=== PATIENT | female | born 1985 | race Caucasian/White ===

== ENCOUNTER 2018-02-09 12:17 | Emergency (ER) | payer OTHER, MEDICAID ==
[2018-02-09 13:31] LABS: ADD MAN DIFF? NO
[2018-02-09 13:33] LABS: BASOPHIL # 0.1 10^3/ul (0.0-0.1); BASOPHILS % 0.6 % (0.0-2.0); EOSINOPHILS # 0.1 10^3/ul (0.0-0.5); EOSINOPHILS % 1.1 % (0.0-7.0); HEMATOCRIT 36.8 % (37.0-47.0); HEMOGLOBIN 11.5 g/dl (12.0-16.0); LYMPHOCYTES % 19.2 % (15.0-51.0); MEAN CORPUSCULAR HEMOGLOBIN 25.7 pg (29.0-33.0); MEAN CORPUSCULAR HGB CONC 31.3 g/dl (32.0-37.0); MEAN CORPUSCULAR VOLUME 82.3 fl (82.0-101.0); MEAN PLATELET VOLUME 11.2 fl (7.4-10.4); MONOCYTE # 0.7 10^3/ul (0.3-0.9); MONOCYTES % 6.6 % (0.0-11.0); NEUTROPHIL # 7.4 10^3/ul (1.6-7.5); NEUTROPHILS % 72.1 % (39.0-77.0); PLATELET COUNT 336 10^3/UL (140-415); RED BLOOD COUNT 4.47 10^6/ul (4.20-5.40); RED CELL DISTRIBUTION WIDTH 14.5 % (11.5-14.5)
[2018-02-09 13:33] LABS: WHITE BLOOD COUNT 10.2 10^3/ul (4.8-10.8)
[2018-02-09 13:39] LABS: ADD UMIC YES; UR ASCORBIC ACID 20 mg/dL (NEGATIVE); UR BACTERIA FEW /HPF (NONE SEEN); UR BILIRUBIN (Dip) NEGATIVE (NEGATIVE); UR BLOOD (Dip) 3+ mg/dL (NEGATIVE); UR CLARITY CLOUDY (CLEAR); UR COLOR YELLOW (YELLOW); UR GLUCOSE (Dip) NEGATIVE (NEGATIVE); UR KETONES (Dip) NEGATIVE (NEGATIVE); UR LEUKOCYTE ESTERASE (Dip) NEGATIVE Leu/ul (NEGATIVE); UR NITRITE (Dip) NEGATIVE (NEGATIVE); UR RBC 30 /HPF (0-5); UR SPECIFIC GRAVITY (Dip) 1.019 (1.003-1.030); UR SQUAMOUS EPITHELIAL CELL MODERATE /HPF (FEW); UR TOTAL PROTEIN (Dip) 1+ mg/dl (NEGATIVE); UR UROBILINOGEN (Dip) NEGATIVE (NEGATIVE); UR WBC 13 /HPF (0-5)
== END 2018-02-09 15:13 | disposition home or self-care (01) ==
LOC: FTE 12:17
DX: O20.9 Hemorrhage in early pregnancy, unspecified (principal); R10.2 Pelvic and perineal pain; Z3A.01 Less than 8 weeks gestation of pregnancy
CPT/HCPCS: 36415; 76801; 76817; 81001; 84702; 85025; 86900; 86901; 99284-25

== ENCOUNTER 2018-02-11 12:43 | Emergency (ER) | payer OTHER ==
[2018-02-11 13:45] LABS: ADD MAN DIFF? NO
[2018-02-11 13:49] LABS: WHITE BLOOD COUNT 12.7 10^3/ul (4.8-10.8)
[2018-02-11 13:49] LABS: BASOPHIL # 0.1 10^3/ul (0.0-0.1); BASOPHILS % 0.6 % (0.0-2.0); EOSINOPHILS # 0.2 10^3/ul (0.0-0.5); EOSINOPHILS % 1.3 % (0.0-7.0); HEMATOCRIT 35.1 % (37.0-47.0); LYMPHOCYTES # 2.3 10^3/ul (0.8-2.9); LYMPHOCYTES % 18.3 % (15.0-51.0); MEAN CORPUSCULAR HEMOGLOBIN 25.5 pg (29.0-33.0); MEAN CORPUSCULAR HGB CONC 31.3 g/dl (32.0-37.0); MEAN CORPUSCULAR VOLUME 81.4 fl (82.0-101.0); MEAN PLATELET VOLUME 11.2 fl (7.4-10.4); MONOCYTE # 0.8 10^3/ul (0.3-0.9); MONOCYTES % 6.4 % (0.0-11.0); NEUTROPHIL # 9.3 10^3/ul (1.6-7.5); NEUTROPHILS % 73.1 % (39.0-77.0); PLATELET COUNT 324 10^3/UL (140-415); RED BLOOD COUNT 4.31 10^6/ul (4.20-5.40); RED CELL DISTRIBUTION WIDTH 14.6 % (11.5-14.5)
[2018-02-11 14:18] LABS: ADD UMIC YES; UR ASCORBIC ACID 40 mg/dL (NEGATIVE); UR BACTERIA FEW /HPF (NONE SEEN); UR BILIRUBIN (Dip) NEGATIVE (NEGATIVE); UR BLOOD (Dip) 3+ mg/dL (NEGATIVE); UR CLARITY CLOUDY (CLEAR); UR COLOR YELLOW (YELLOW); UR GLUCOSE (Dip) NEGATIVE (NEGATIVE); UR KETONES (Dip) NEGATIVE (NEGATIVE); UR LEUKOCYTE ESTERASE (Dip) TRACE Leu/ul (NEGATIVE); UR MUCUS FEW /HPF (NONE SEEN); UR NITRITE (Dip) NEGATIVE (NEGATIVE); UR RBC 3 /HPF (0-5); UR SPECIFIC GRAVITY (Dip) 1.026 (1.003-1.030); UR SQUAMOUS EPITHELIAL CELL MODERATE /HPF (FEW); UR TOTAL PROTEIN (Dip) 1+ mg/dl (NEGATIVE); UR UROBILINOGEN (Dip) NEGATIVE (NEGATIVE); UR WBC 12 /HPF (0-5)
== END 2018-02-11 15:27 | disposition home or self-care (01) ==
LOC: FTE 15:27
DX: O20.0 Threatened abortion (principal); R10.2 Pelvic and perineal pain; Z3A.00 Weeks of gestation of pregnancy not specified
CPT/HCPCS: 36415; 76801; 76817; 81001; 84702; 85025; 99284-25

== ENCOUNTER 2018-02-15 15:54 | Emergency (ER) | payer OTHER ==
[2018-02-15] MEDS: NAPROXEN 500 MG TAB PO (19:25)
[2018-02-15 19:54] LABS: ADD MAN DIFF? NO
[2018-02-15 19:57] LABS: WHITE BLOOD COUNT 11.6 10^3/ul (4.8-10.8)
[2018-02-15 19:57] LABS: BASOPHIL # 0.1 10^3/ul (0.0-0.1); BASOPHILS % 0.5 % (0.0-2.0); EOSINOPHILS # 0.2 10^3/ul (0.0-0.5); EOSINOPHILS % 1.5 % (0.0-7.0); HEMATOCRIT 36.1 % (37.0-47.0); HEMOGLOBIN 11.1 g/dl (12.0-16.0); LYMPHOCYTES % 17.1 % (15.0-51.0); MEAN CORPUSCULAR HEMOGLOBIN 25.7 pg (29.0-33.0); MEAN CORPUSCULAR HGB CONC 30.7 g/dl (32.0-37.0); MEAN CORPUSCULAR VOLUME 83.6 fl (82.0-101.0); MEAN PLATELET VOLUME 11.5 fl (7.4-10.4); MONOCYTE # 0.8 10^3/ul (0.3-0.9); MONOCYTES % 6.6 % (0.0-11.0); NEUTROPHIL # 8.6 10^3/ul (1.6-7.5); PLATELET COUNT 310 10^3/UL (140-415); RED BLOOD COUNT 4.32 10^6/ul (4.20-5.40); RED CELL DISTRIBUTION WIDTH 14.3 % (11.5-14.5)
== END 2018-02-15 21:33 | disposition home or self-care (01) ==
LOC: FTE 15:54
DX: O03.9 Complete or unspecified spontaneous abortion without complication (principal); R40.2412 Glasgow coma scale score 13-15, at arrival to emergency department; R10.2 Pelvic and perineal pain
CPT/HCPCS: 76801; 85025; 99284-25

== ENCOUNTER 2018-03-08 07:39 | Inpatient (IN) | payer OTHER ==
[2018-03-08] MEDS: SOD CHLORIDE 0.9% 1,000 ML IV ×3 (08:04→12:18)
[2018-03-08] MEDS: ONDANSETRON 4 MG INJ IV ×4 (08:04→20:30)
[2018-03-08] MEDS: HYDROCODONE/APAP (5/325) TAB PO (08:05)
[2018-03-08 08:14] LABS: ADD MAN DIFF? NO
[2018-03-08 08:15] LABS: WHITE BLOOD COUNT 7.9 10^3/ul (4.8-10.8)
[2018-03-08 08:15] LABS: BASOPHILS % 0.6 % (0.0-2.0); EOSINOPHILS % 2.8 % (0.0-7.0); HEMATOCRIT 33.3 % (37.0-47.0); HEMOGLOBIN 10.5 g/dl (12.0-16.0); LYMPHOCYTES % 31.9 % (15.0-51.0); MEAN CORPUSCULAR HEMOGLOBIN 25.6 pg (29.0-33.0); MEAN CORPUSCULAR HGB CONC 31.5 g/dl (32.0-37.0); MEAN CORPUSCULAR VOLUME 81.2 fl (82.0-101.0); MEAN PLATELET VOLUME 11.2 fl (7.4-10.4); MONOCYTES % 6.9 % (0.0-11.0); NEUTROPHILS % 57.5 % (39.0-77.0); PLATELET COUNT 274 10^3/UL (140-415); RED CELL DISTRIBUTION WIDTH 13.7 % (11.5-14.5)
[2018-03-08 08:16] LABS: BASOPHIL # 0.1 10^3/ul (0.0-0.1); EOSINOPHILS # 0.2 10^3/ul (0.0-0.5); LYMPHOCYTES # 2.5 10^3/ul (0.8-2.9); MONOCYTE # 0.6 10^3/ul (0.3-0.9); NEUTROPHIL # 4.6 10^3/ul (1.6-7.5)
[2018-03-08 08:24] LABS: ADD UMIC YES; UR ASCORBIC ACID 40 mg/dL (NEGATIVE); UR BACTERIA FEW /HPF (NONE SEEN); UR BILIRUBIN (Dip) NEGATIVE (NEGATIVE); UR BLOOD (Dip) 3+ mg/dL (NEGATIVE); UR CLARITY CLOUDY (CLEAR); UR COLOR YELLOW (YELLOW); UR GLUCOSE (Dip) NEGATIVE (NEGATIVE); UR KETONES (Dip) NEGATIVE (NEGATIVE); UR LEUKOCYTE ESTERASE (Dip) TRACE Leu/ul (NEGATIVE); UR MUCUS FEW /HPF (NONE SEEN); UR NITRITE (Dip) NEGATIVE (NEGATIVE); UR RBC 7 /HPF (0-5); UR SPECIFIC GRAVITY (Dip) 1.023 (1.003-1.030); UR SQUAMOUS EPITHELIAL CELL MANY /HPF (FEW); UR TOTAL PROTEIN (Dip) 1+ mg/dl (NEGATIVE); UR UROBILINOGEN (Dip) NEGATIVE (NEGATIVE); UR WBC 12 /HPF (0-5)
[2018-03-08] MEDS: HYDROmorphONE 1 MG/ML SYG IV ×2 (09:27→10:38)
[2018-03-08 09:37] LABS: ALANINE AMINOTRANSFERASE 26 IU/L (13-69); ALBUMIN 4.5 g/dl (3.3-4.9); ALBUMIN/GLOBULIN RATIO 1.55; ALKALINE PHOSPHATASE 78 IU/L (42-121); ANION GAP 21 (8-16); ASPARTATE AMINO TRANSFERASE 20 IU/L (15-46); BILIRUBIN,INDIRECT 0.2 mg/dl (0-1.1); BILIRUBIN,TOTAL 0.2 mg/dl (0.2-1.3); BLOOD UREA NITROGEN 7 mg/dl (7-20); CALCIUM 9.2 mg/dl (8.4-10.2); CARBON DIOXIDE 19 mmol/L (21-31); CHLORIDE 104 mmol/L (97-110); CREATININE 0.56 mg/dl (0.44-1.00); GLUCOSE 139 mg/dl (70-220); POTASSIUM 3.4 mmol/L (3.5-5.1); SODIUM 141 mmol/L (135-144); TOTAL PROTEIN 7.4 g/dl (6.1-8.1)
[2018-03-08] MEDS ORDERED: ACETAMINOPHEN 325 MG TAB PO (12:30)
[2018-03-08] MEDS: HYDROmorphONE 0.5 MG/0.5 ML SYG IV (16:03)
[2018-03-08] MEDS: LACTATED RINGER'S 1,000 ML IV (16:32)
[2018-03-08] MEDS ORDERED: ROCURONIUM 50 MG INJ ×2 (16:43→19:02)
[2018-03-08] MEDS ORDERED: MIDAZOLAM 1 MG/ML 2 ML INJ (16:43)
[2018-03-08] MEDS ORDERED: PROPOFOL 20 ML (16:43)
[2018-03-08] MEDS ORDERED: ONDANSETRON 4 MG INJ (16:44)
[2018-03-08] MEDS ORDERED: METOCLOPRAMIDE 10 MG INJ (16:44)
[2018-03-08] MEDS ORDERED: ROPIVACAINE 0.5 % 30 ML VIAL (16:44)
[2018-03-08] MEDS ORDERED: KETOROLAC 30 MG INJ (16:44)
[2018-03-08] MEDS: CEFAZOLIN 2 GM/50 ML (PMX) 50 ML IVPB (17:00)
[2018-03-08] MEDS ORDERED: CEFAZOLIN 1 GM INJ (17:20)
[2018-03-08] MEDS ORDERED: DIPHENHYDRAMINE 50 MG INJ IV (17:30)
[2018-03-08] MEDS ORDERED: ONDANSETRON 4 MG INJ IV (17:30)
[2018-03-08] MEDS ORDERED: HYDROmorphONE 1 MG/5 ML IV SYRINGE IV ×2 (17:30)
[2018-03-08] MEDS ORDERED: MEPERIDINE 25 MG INJ IV (17:30)
[2018-03-08] MEDS ORDERED: BUPIVACAINE 0.25% (MPF) 30 ML INJ (17:48)
[2018-03-08] MEDS: BUPIVACAINE 0.25% (MPF) 30 ML INJ (18:15)
[2018-03-08] MEDS ORDERED: EPHEDrine 50 MG INJ (18:29)
[2018-03-08] MEDS ORDERED: FENTAnyl 50 MCG/ML VIAL (18:46)
[2018-03-08] MEDS ORDERED: NEOSTIGMINE 3 MG/3 ML SYRINGE (19:02)
[2018-03-08] MEDS ORDERED: GLYCOPYRROLATE 0.4 MG INJ (19:02)
[2018-03-08] MEDS ORDERED: METOPROLOL 5 MG INJ (19:20)
[2018-03-08] MEDS ORDERED: LABETALOL HCL 20MG INJ IV (19:30)
[2018-03-08 20:01] LABS: HEMATOCRIT 23.6 % (37.0-47.0); HEMOGLOBIN 7.2 g/dl (12.0-16.0)
[2018-03-08 20:28] LABS: ANION GAP 16 (8-16); BLOOD UREA NITROGEN 7 mg/dl (7-20); CALCIUM 7.6 mg/dl (8.4-10.2); CARBON DIOXIDE 19 mmol/L (21-31); CHLORIDE 109 mmol/L (97-110); CREATININE 0.47 mg/dl (0.44-1.00); GLUCOSE 176 mg/dl (70-220); POTASSIUM 4.6 mmol/L (3.5-5.1); SODIUM 139 mmol/L (135-144)
[2018-03-08] MEDS: HYDROmorphONE 1 MG/5 ML IV SYRINGE IV (20:30)
[2018-03-09] MEDS: IBUPROFEN 600 MG TAB PO ×2 (01:24→07:58)
[2018-03-09] MEDS: LACTATED RINGER'S 1,000 ML IV ×4 (01:24→17:43)
[2018-03-09 05:53] LABS: ADD MAN DIFF? NO
[2018-03-09 06:00] LABS: IMMEDIATE SPIN CROSSMATCH 1 3
[2018-03-09 06:02] LABS: WHITE BLOOD COUNT 11.3 10^3/ul (4.8-10.8)
[2018-03-09 06:02] LABS: ABNORMAL IP MESSAGE 1; BASOPHILS % 0.3 % (0.0-2.0); HEMATOCRIT 19.4 % (37.0-47.0); LYMPHOCYTES # 1.2 10^3/ul (0.8-2.9); LYMPHOCYTES % 10.9 % (15.0-51.0); MEAN CORPUSCULAR HEMOGLOBIN 25.9 pg (29.0-33.0); MEAN CORPUSCULAR HGB CONC 30.9 g/dl (32.0-37.0); MEAN CORPUSCULAR VOLUME 83.6 fl (82.0-101.0); MEAN PLATELET VOLUME 12.3 fl (7.4-10.4); MONOCYTE # 0.7 10^3/ul (0.3-0.9); MONOCYTES % 5.9 % (0.0-11.0); NEUTROPHIL # 9.3 10^3/ul (1.6-7.5); NEUTROPHILS % 82.4 % (39.0-77.0); PLATELET COUNT 224 10^3/UL (140-415); RED BLOOD COUNT 2.32 10^6/ul (4.20-5.40); RED CELL DISTRIBUTION WIDTH 14.1 % (11.5-14.5)
[2018-03-09] MEDS: DIPHENHYDRAMINE 50 MG CAP PO (06:11)
[2018-03-09] MEDS: ACETAMINOPHEN 325 MG TAB PO (06:11)
[2018-03-09 06:13] LABS: POSITIVE DIFF @See below
[2018-03-09] MEDS: HYDROCODONE/APAP (5/325) TAB PO (17:38)
[2018-03-09 22:32] LABS: ADD MAN DIFF? NO
[2018-03-09 22:35] LABS: WHITE BLOOD COUNT 10.2 10^3/ul (4.8-10.8)
[2018-03-09 22:35] LABS: BASOPHIL # 0.1 10^3/ul (0.0-0.1); BASOPHILS % 0.5 % (0.0-2.0); EOSINOPHILS # 0.1 10^3/ul (0.0-0.5); EOSINOPHILS % 1.4 % (0.0-7.0); HEMATOCRIT 29.5 % (37.0-47.0); HEMOGLOBIN 9.5 g/dl (12.0-16.0); LYMPHOCYTES # 1.8 10^3/ul (0.8-2.9); LYMPHOCYTES % 17.6 % (15.0-51.0); MEAN CORPUSCULAR HEMOGLOBIN 27.1 pg (29.0-33.0); MEAN CORPUSCULAR HGB CONC 32.2 g/dl (32.0-37.0); MEAN CORPUSCULAR VOLUME 84.3 fl (82.0-101.0); MEAN PLATELET VOLUME 11.8 fl (7.4-10.4); MONOCYTE # 0.7 10^3/ul (0.3-0.9); MONOCYTES % 7.3 % (0.0-11.0); NEUTROPHIL # 7.4 10^3/ul (1.6-7.5); NEUTROPHILS % 72.5 % (39.0-77.0); PLATELET COUNT 215 10^3/UL (140-415); RED CELL DISTRIBUTION WIDTH 14.6 % (11.5-14.5)
[2018-03-10] MEDS: HYDROCODONE/APAP (5/325) TAB PO ×2 (02:38→08:44)
[2018-03-10 05:15] LABS: ADD MAN DIFF? NO
[2018-03-10 05:23] LABS: WHITE BLOOD COUNT 7.9 10^3/ul (4.8-10.8)
[2018-03-10 05:23] LABS: BASOPHILS % 0.5 % (0.0-2.0); EOSINOPHILS # 0.2 10^3/ul (0.0-0.5); HEMATOCRIT 26.5 % (37.0-47.0); HEMOGLOBIN 8.5 g/dl (12.0-16.0); LYMPHOCYTES # 1.8 10^3/ul (0.8-2.9); LYMPHOCYTES % 22.7 % (15.0-51.0); MEAN CORPUSCULAR HEMOGLOBIN 27.1 pg (29.0-33.0); MEAN CORPUSCULAR HGB CONC 32.1 g/dl (32.0-37.0); MEAN CORPUSCULAR VOLUME 84.4 fl (82.0-101.0); MEAN PLATELET VOLUME 11.6 fl (7.4-10.4); MONOCYTE # 0.6 10^3/ul (0.3-0.9); NEUTROPHIL # 5.3 10^3/ul (1.6-7.5); NEUTROPHILS % 67.2 % (39.0-77.0); PLATELET COUNT 198 10^3/UL (140-415); RED BLOOD COUNT 3.14 10^6/ul (4.20-5.40); RED CELL DISTRIBUTION WIDTH 14.7 % (11.5-14.5)
[2018-03-10] MEDS: ONDANSETRON 4 MG INJ IV (10:16)
[2018-03-10 14:12] LABS: ADD MAN DIFF? NO
[2018-03-10 14:15] LABS: BASOPHIL # 0.1 10^3/ul (0.0-0.1); BASOPHILS % 0.6 % (0.0-2.0); EOSINOPHILS # 0.1 10^3/ul (0.0-0.5); EOSINOPHILS % 1.4 % (0.0-7.0); HEMOGLOBIN 9.4 g/dl (12.0-16.0); LYMPHOCYTES # 1.7 10^3/ul (0.8-2.9); LYMPHOCYTES % 17.6 % (15.0-51.0); MEAN CORPUSCULAR HEMOGLOBIN 27.6 pg (29.0-33.0); MEAN CORPUSCULAR HGB CONC 32.4 g/dl (32.0-37.0); MEAN CORPUSCULAR VOLUME 85.3 fl (82.0-101.0); MEAN PLATELET VOLUME 11.5 fl (7.4-10.4); MONOCYTE # 0.6 10^3/ul (0.3-0.9); MONOCYTES % 6.2 % (0.0-11.0); NEUTROPHIL # 7.1 10^3/ul (1.6-7.5); NEUTROPHILS % 73.7 % (39.0-77.0); PLATELET COUNT 220 10^3/UL (140-415); RED CELL DISTRIBUTION WIDTH 14.6 % (11.5-14.5)
[2018-03-10 14:15] LABS: WHITE BLOOD COUNT 9.7 10^3/ul (4.8-10.8)
[2018-03-10] MEDS: IBUPROFEN 600 MG TAB PO (16:23)
[2018-03-11] MEDS: IBUPROFEN 600 MG TAB PO ×2 (01:51→12:10)
== END 2018-03-11 18:25 | disposition home or self-care (01) | DRG 777 ==
LOC: E/R 07:39 → SDS 16:00 → MS1 20:30
PROC: 10T24ZZ Resection of Products of Conception, Ectopic, Percutaneous Endoscopic Approach (ICD-10-PCS; principal; 2018-03-08 16:30)
PROC: 0UB54ZZ Excision of Right Fallopian Tube, Percutaneous Endoscopic Approach (ICD-10-PCS; 2018-03-08 16:30)
PROC: 30233N1 Transfusion of Nonautologous Red Blood Cells into Peripheral Vein, Percutaneous Approach (ICD-10-PCS; 2018-03-08 16:47)
DX: O00.101 Right tubal pregnancy without intrauterine pregnancy (principal); K66.1 Hemoperitoneum
CPT/HCPCS: 36415; 36430; 76801; 76817; 80048; 80053; 81001; 84702; 85014; 85018; 85025; 86850; 86900; 86901; 86920; 88302; 96361; 96374; 96375; 96376; 99291-25